=== PATIENT | male | born 1980 | race American Indian/Alaskan Native ===

== ENCOUNTER 2016-08-24 21:08 | Emergency (ER) | payer MEDICARE ==
[2016-08-24] MEDS ORDERED: ZOFRAN IV ONE (23:24)
[2016-08-24] MEDS ORDERED: NACL 0.9% 1000 ML 1,000 ML IV ONE (23:24)
[2016-08-24] MEDS ORDERED: RELISTOR SUB-Q ONE (23:32)
--- NOTE | 2016-08-24 23:36 | Emergency Department Report ---
ED Abdominal Pain HPI - General Chief Complaint: Abdominal Pain Stated Complaint: ABDOMINAL PAIN Time Seen by Provider: 08/24/16 23:13 Source: EMS Mode of arrival: Stretcher Limitations: No Limitations - History of Present Illness Initial Comments: Patient is alert 6-year-old male with history of bowel obstructions with prior surgeries for bowel obstructions, diabetes, hypertension and chronic back pain for which the patient takes hydrocodone 10 mg every day as well as [facility] agitation, anger and suicidal ideation of diffuse abdominal pain and constipation. Patient states that he does not have a bowel movement in 7 days. He's also been vomiting on and off for the last 14 days. Denies any fevers or chills. He is not able to keep any foods down because it causes nausea and vomits. - Related Data Previous Rx's Medication Instructions Recorded Last Taken Type Ondansetron [Zofran Odt] 4 mg PO Q4H #14 tab.rapdis 07/03/13 Unknown Rx Docusate Sodium [Colace] 100 mg PO BID PRN #20 capsule 08/25/16 Unknown Rx Polyethylene Glycol 3350 [Miralax 17 gm PO QDAY #10 packet 08/25/16 Unknown Rx 3350] Allergies Allergy/AdvReac Type Severity Reaction Status Date / Time No Known Allergies Allergy Verified 08/24/16 21:15 ED Review of Systems ROS: Stated complaint: ABDOMINAL PAIN Other details as noted in HPI Comment: All other systems reviewed and negative Constitutional: denies: chills, fever Respiratory: denies: cough Cardiovascular: denies: chest pain Gastrointestinal: abdominal pain. denies: vomiting Skin: denies: rash Psychiatric: denies: anxiety ED Past Medical Hx - Past Medical History Previous Medical History?: Yes Hx Hypertension: Yes Hx Diabetes: Yes Hx Psychiatric Treatment: Yes (Bipolar) Additional medical history: bowel obstruction - Surgical History Past Surgical History?: Yes Additional Surgical History: colectomy 2012 - Social History Smoking Status: Current Every Day Smoker Substance Use Type: Alcohol, Marijuana - Medications Home Medications: Home Medications Medication Instructions Recorded Confirmed Last Taken Type Ondansetron [Zofran Odt] 4 mg PO Q4H #14 tab.rapdis 07/03/13 Unknown Rx Docusate Sodium [Colace] 100 mg PO BID PRN #20 capsule 08/25/16 Unknown Rx Polyethylene Glycol 3350 [Miralax 17 gm PO QDAY #10 packet 08/25/16 Unknown Rx 3350] ED Physical Exam - General Limitations: No Limitations General appearance: alert, in no apparent distress - Eye Eye exam: Present: normal appearance - Respiratory Respiratory exam: Present: normal lung sounds bilaterally. Absent: respiratory distress - Cardiovascular Cardiovascular Exam: Present: regular rate, normal rhythm - GI/Abdominal GI/Abdominal exam: Present: soft, tenderness (mild epigastric tenderness, Han 's negative, no tenderness at McBurney's point). Absent: distended - Neurological Exam Neurological exam: Present: alert, oriented X3 - Psychiatric Psychiatric exam: Present: normal affect - Skin Skin exam: Present: intact ED Course Vital Signs 08/24/16 08/24/16 08/24/16 21:38 21:39 21:45 Temperature 98.8 F Pulse Rate 83 85 Respiratory 16 16 Rate Blood Pressure 142/96 O2 Sat by Pulse Oximetry 08/24/16 08/24/16 08/24/16 22:00 22:30 23:00 Temperature Pulse Rate 83 83 79 Respiratory 15 16 15 Rate Blood Pressure 132/95 133/89 136/96 O2 Sat by Pulse 98 100 Oximetry 08/24/16 08/25/16 08/25/16 23:30 00:00 00:01 Temperature Pulse Rate 81 79 74 Respiratory 15 15 20 Rate Blood Pressure 125/81 115/78 115/78 O2 Sat by Pulse 98 99 Oximetry 08/25/16 08/25/16 00:30 01:00 Temperature Pulse Rate 78 Respiratory 15 19 Rate Blood Pressure 121/89 140/104 O2 Sat by Pulse 100 Oximetry - Reevaluation(s) Reevaluation #1: 08/25/16 01:41 Attempting enema as patient has not had a bowel movement. Reevaluation #2: 08/25/16 01:46 Patient had a bowel movement after Fleet enema, feels better but states that he would like to have another enema. I explained to the patient the importance of taking the medication to move his bowels as opioids will cause significant constipation for him. He appears to understand. We'll do another round of Fleet enema and discharge the patient back to a psychiatric facility. ED Medical Decision Making - Lab Data Result diagrams: 08/24/16 23:47 08/24/16 23:47 - Medical Decision Making IV, labs, IVF, zofran, xr abd, methylnaltrexone xr shows no air-fluid levels labs unremarkable given the xray and lack of distention or vomiting while in ER my concern for sbo is low, more likely to be constipation secondary to daily narcotic use without stool softener. Critical care attestation.: If time is entered above; I have spent that time in minutes in the direct care of this critically ill patient, excluding procedure time. ED Disposition Clinical Impression: Constipation Qualifiers: Constipation type: drug induced constipation Qualified Code(s): K59.03 - Drug induced constipation Disposition: DC/TX PSY HOSP/PSY UNIT Is pt being admited?: No Does the pt Need Aspirin: No Condition: Stable Instructions: Constipation (ED) Additional Instructions: Please follow up with the primary care physician in the next 3-5 days. Return to the emergency room immediately if your symptoms worsen significantly or you develop any new symptoms. Please make sure to take the MiraLAX and Colace prescribed as this will provide you from feeling significantly constipated or developing a obstruction. Prescriptions: Docusate Sodium [Colace] 100 mg PO BID PRN #20 capsule PRN Reason: Constipation Polyethylene Glycol 3350 [Miralax 3350] 17 gm PO QDAY #10 packet Referrals: PRIMARY CARE, [Primary Care Provider] - 3-5 Days Time of Disposition: 01:52
[2016-08-24 23:59] LABS: Basophils % (Auto) 0.7 % (0.0-1.8); Eosinophils % (Auto) 1.7 % (0.0-4.3); Hematocrit 46.2 % (35.5-45.6); Hemoglobin 15.1 gm/dl (11.8-15.2); Mean Corpuscular HGB Conc 33 % (32-34); Mean Corpuscular Volume 74 fl (84-94); Platelet Count 288 K/mm3 (140-440); Red Blood Count 6.28 M/mm3 (3.65-5.03); Red Cell Distribution Width 14.6 % (13.2-15.2); White Blood Count 9.2 K/mm3 (4.5-11.0)
[2016-08-25 00:04] LABS: Mean Corpuscular Hemoglobin 24 pg (28-32)
[2016-08-25 00:29] LABS: Alanine Aminotransferase 6 units/L (7-56); Albumin 3.8 g/dL (3.9-5); Albumin/Globulin Ratio 1.4 %; Alkaline Phosphatase 56 units/L (35-129); BUN/Creatinine Ratio 6.25; Blood Urea Nitrogen 5 mg/dL (9-20); Calcium 9.1 mg/dL (8.4-10.2); Carbon Dioxide 25 mmol/L (22-30); Chloride 92.8 mmol/L (98-107); Glucose 118 mg/dL (75-100); Lipase 20 units/L (13-60); Potassium 3.6 mmol/L (3.6-5.0); Sodium 132 mmol/L (137-145); Total Protein 6.6 g/dL (6.3-8.2)
[2016-08-25 00:30] LABS: Anion Gap 18 mmol/L; Bilirubin,Direct < 0.2 mg/dL (0-0.2); Bilirubin,Indirect 0.1 mg/dL
[2016-08-25 00:39] LABS: Bilirubin,Urine NEG (Negative); Blood,Urine NEG (Negative); Ketones,Urine NEG (Negative); Leukocyte Esterase,Urine NEG (Negative); Nitrite,Urine NEG (Negative); Protein,Urine <15 mg/dL mg/dL (Negative); Urobilinogen,Urine < 2.0 mg/dL (<2.0); WBC,Urine < 1.0 /HPF (0.0-6.0)
[2016-08-25] MEDS ORDERED: FLEET PR ONE ×2 (01:08→01:46)
[2016-08-25 03:16] VITALS: BP 140/104
--- NOTE | 2016-08-25 10:12 | XRay Report ---
ABDOMEN TWO VIEWS: 08/24/16 23:25:00 CLINICAL: Abdominal pain. FINDINGS: Supine upright views demonstrate a normal bowel gas pattern. No distended bowel and no air-fluid levels. No mass or suspicious calcifications. Small pelvic calcifications. A distal ureteral calculus cannot be excluded. The bones and soft tissues are normal. IMPRESSION: Negative abdomen except for pelvic calculi. Ureteral calculi cannot be excluded.
== END 2016-08-25 03:10 ==
LOC: ED 21:08
DX: K59.03 Drug induced constipation (principal); I10 Essential (primary) hypertension; E11.9 Type 2 diabetes mellitus without complications; F31.9 Bipolar disorder, unspecified; F17.200 Nicotine dependence, unspecified, uncomplicated; F12.10 Cannabis abuse, uncomplicated
CPT/HCPCS: 36415; 74020; 80048; 80074; 81001; 83690; 85025; 96361; 96372; 96374; 99285; J2212; J2405; J7030

== ENCOUNTER 2017-09-23 12:58 | Emergency (ER) | payer MEDICARE ==
[2017-09-23 14:26] LABS: Basophils # (Auto) 0.1 K/mm3 (0.0-0.1); Basophils % (Auto) 0.9 % (0.0-1.8); Eosinophils # (Auto) 0.1 K/mm3 (0.0-0.4); Eosinophils % (Auto) 1.1 % (0.0-4.3); Hematocrit 50.4 % (35.5-45.6); Hemoglobin 15.9 gm/dl (11.8-15.2); Lymphocytes # (Auto) 2.6 K/mm3 (1.2-5.4); Lymphocytes % (Auto) 27.8 % (13.4-35.0); Mean Corpuscular HGB Conc 32 % (32-34); Mean Corpuscular Volume 77 fl (84-94); Monocytes # (Auto) 0.8 K/mm3 (0.0-0.8); Monocytes % (Auto) 8.9 % (0.0-7.3); Platelet Count 351 K/mm3 (140-440); Red Blood Count 6.57 M/mm3 (3.65-5.03); Red Cell Distribution Width 14.6 % (13.2-15.2)
[2017-09-23 14:28] LABS: Mean Corpuscular Hemoglobin 24 pg (28-32)
[2017-09-23 14:40] LABS: Alanine Aminotransferase 8 units/L (7-56); Albumin 3.7 g/dL (3.9-5); BUN/Creatinine Ratio 9; Blood Urea Nitrogen 8 mg/dL (9-20); Calcium 9.2 mg/dL (8.4-10.2); Hemolysis Index 21
[2017-09-23 15:12] LABS: Bilirubin,Urine NEG (Negative); Blood,Urine NEG (Negative); Color,Urine Yellow (Yellow); Hyaline Casts,Urine 1 /LPF; Protein,Urine <15 mg/dL mg/dL (Negative); Urobilinogen,Urine < 2.0 mg/dL (<2.0)
[2017-09-23 15:20] LABS: Benzodiazepines Screen,Urine PRESUMPTIVE NEGATIVE; Cannabinoid Screen,Urine PRESUMPTIVE NEGATIVE; Cocaine Screen,Urine PRESUMPTIVE NEGATIVE; Methadone Screen,Urine PRESUMPTIVE NEGATIVE; Opiate Screen,Urine PRESUMPTIVE NEGATIVE
[2017-09-23 15:32] LABS: Amphetamine Screen,Urine PRESUMPTIVE POSITIVE
--- NOTE | 2017-09-23 15:56 | Emergency Department Report ---
ED General Adult HPI - General Chief complaint: Abdominal Pain Stated complaint: ABDOMINAL PAIN Time Seen by Provider: 09/23/17 15:41 Source: patient, RN notes reviewed Mode of arrival: Wheelchair Limitations: No Limitations - History of Present Illness Initial comments: This is a 37-year-old male who is unknown to this provider, who reports a past medical history of constipation, bipolar, bowel obstruction, with a partial colectomy in 2012. He presents to the ER with a complaint of not defecating for 4 days, abdominal cramping, and nausea and vomiting. This is been going on for a few days. It is constant. It does not radiate anywhere. it does not have exacerbating or relieving factors. She denies headache, neck pain, chest pain, testicular pain, urinary symptoms. He is also requesting Gatorade to drink. -: Gradual Location: abdomen Radiation: non-radiation Quality: aching Consistency: intermittent Improves with: none Worsens with: none Associated Symptoms: nausea/vomiting, other (constipation. Denies testicular symptoms). denies: confusion, chest pain, cough, diaphoresis, fever/chills, headaches, loss of appetite, malaise, rash, seizure, shortness of breath, syncope - Related Data Previous Rx's Medication Instructions Recorded Last Taken Type Ondansetron [Zofran Odt] 4 mg PO Q4H #14 tab.rapdis 07/03/13 Unknown Rx Docusate Sodium [Colace] 100 mg PO BID PRN #20 capsule 08/25/16 Unknown Rx Polyethylene Glycol 3350 [Miralax 17 gm PO QDAY #10 packet 08/25/16 Unknown Rx 3350] Acetaminophen [Tylenol Arthritis] 650 mg PO Q6HR PRN #30 tablet.er 09/23/17 Unknown Rx Ondansetron [Zofran Odt] 4 mg PO Q8HR PRN #20 tab.rapdis 09/23/17 Unknown Rx Allergies Allergy/AdvReac Type Severity Reaction Status Date / Time No Known Allergies Allergy Verified 08/24/16 21:15 ED Review of Systems ROS: Stated complaint: ABDOMINAL PAIN Other details as noted in HPI Comment: All other systems reviewed and negative ED Past Medical Hx - Past Medical History Hx Hypertension: Yes Hx Diabetes: Yes Hx Psychiatric Treatment: Yes (Bipolar) Additional medical history: bowel obstruction - Surgical History Additional Surgical History: colectomy 2012 - Social History Smoking Status: Unknown if ever smoked Substance Use Type: Alcohol - Medications Home Medications: Home Medications Medication Instructions Recorded Confirmed Last Taken Type Ondansetron [Zofran Odt] 4 mg PO Q4H #14 tab.rapdis 07/03/13 Unknown Rx Docusate Sodium [Colace] 100 mg PO BID PRN #20 capsule 08/25/16 Unknown Rx Polyethylene Glycol 3350 [Miralax 17 gm PO QDAY #10 packet 08/25/16 Unknown Rx 3350] Acetaminophen [Tylenol Arthritis] 650 mg PO Q6HR PRN #30 tablet.er 09/23/17 Unknown Rx Ondansetron [Zofran Odt] 4 mg PO Q8HR PRN #20 tab.rapdis 09/23/17 Unknown Rx ED Physical Exam - General Limitations: No Limitations General appearance: alert, in no apparent distress - Head Head exam: Present: atraumatic, normocephalic - Eye Eye exam: Present: normal appearance, EOMI. Absent: nystagmus - ENT ENT exam: Present: normal exam, normal orophraynx, mucous membranes moist, normal external ear exam - Neck Neck exam: Present: normal inspection, full ROM - Respiratory Respiratory exam: Present: normal lung sounds bilaterally. Absent: respiratory distress - Cardiovascular Cardiovascular Exam: Present: regular rate, normal rhythm, normal heart sounds. Absent: systolic murmur, diastolic murmur, rubs, gallop - GI/Abdominal GI/Abdominal exam: Present: soft, normal bowel sounds. Absent: distended, tenderness, guarding, rebound, rigid, pulsatile mass - Rectal Rectal exam: Present: deferred - Extremities Exam Extremities exam: Present: normal inspection, full ROM, normal capillary refill. Absent: pedal edema, joint swelling, calf tenderness - Back Exam Back exam: Present: normal inspection, full ROM. Absent: tenderness, CVA tenderness (R), paraspinal tenderness, vertebral tenderness - Neurological Exam Neurological exam: Present: alert, oriented X3, CN II-XII intact, other ( Extraocular movements intact. Tongue midline. No facial droop. Facial sensation intact to light touch in the V1, V2, V3 distribution bilaterally. 5 and 5 strength in 4 extremities.. Sensation is intact to light touch in 4 extremities.). Absent: motor sensory deficit - Psychiatric Psychiatric exam: Present: normal affect, normal mood. Absent: homicidal ideation, suicidal ideation - Skin Skin exam: Present: warm, dry, intact, normal color. Absent: rash ED Course Vital Signs 09/23/17 13:50 Temperature 98 F Pulse Rate 91 H Respiratory 16 Rate Blood Pressure 108/68 O2 Sat by Pulse 95 Oximetry - Reevaluation(s) Reevaluation #1: 09/23/17 16:30 Differential diagnosis, including but not limited to: Constipation, obstruction Assessment and plan: 37-year-old male with probable constipation. However given his history of obstruction and colonic resection, we will obtain a CT scan to exclude obstruction. His abdomen is soft and benign, with normal bowel sounds, laboratory studies appear to be within normal limits, and he is drinking fluids without difficulty. Reevaluation #2: 09/23/17 16:32 The patient is currently on a 1013 from a psychiatric facility but he is not actively psychotic, nor is he homicidal or suicidal at this time. Reevaluation #3: 09/23/17 18:29 Abdomen is soft on repeat examination. The patient is tolerating oral feeds. CT scan of the abdomen and pelvis is negative for surgical disease. Patient can be managed expectantly. No evidence of obstruction. ED Medical Decision Making - Lab Data Result diagrams: 09/23/17 14:03 09/23/17 14:03 Vital Signs 09/23/17 13:50 Temperature 98 F Pulse Rate 91 H Respiratory 16 Rate Blood Pressure 108/68 O2 Sat by Pulse 95 Oximetry Lab Results 09/23/17 09/23/17 09/23/17 Range/Units 14:03 14:03 14:03 WBC 9.5 (4.5-11.0) K/mm3 RBC 6.57 H (3.65-5.03) M/mm3 Hgb 15.9 H (11.8-15.2) gm/dl Hct 50.4 H (35.5-45.6) % MCV 77 L (84-94) fl MCH 24 L (28-32) pg MCHC 32 (32-34) % RDW 14.6 (13.2-15.2) % Plt Count 351 (140-440) K/mm3 Lymph % (Auto) 27.8 (13.4-35.0) % [place] % (Auto) 8.9 H (0.0-7.3) % Eos % (Auto) 1.1 (0.0-4.3) % Baso % (Auto) 0.9 (0.0-1.8) % Lymph # 2.6 (1.2-5.4) K/mm3 [place] # 0.8 (0.0-0.8) K/mm3 Eos # 0.1 (0.0-0.4) K/mm3 Baso # 0.1 (0.0-0.1) K/mm3 Seg Neutrophils % 61.3 (40.0-70.0) % Seg Neutrophils # 5.9 (1.8-7.7) K/mm3 Sodium 134 L (137-145) mmol/L Potassium 3.7 (3.6-5.0) mmol/L Chloride 93.7 L (98-107) mmol/L Carbon Dioxide 27 (22-30) mmol/L Anion Gap 17 mmol/L BUN 8 L (9-20) mg/dL Creatinine 0.9 (0.8-1.5) mg/dL Estimated GFR > 60 ml/min BUN/Creatinine Ratio 9 % Glucose 139 H (75-100) mg/dL Calcium 9.2 (8.4-10.2) mg/dL Total Bilirubin 0.50 (0.1-1.2) mg/dL AST 24 (5-40) units/L ALT 8 (7-56) units/L Alkaline Phosphatase 73 (35-129) units/L Total Protein 7.0 (6.3-8.2) g/dL Albumin 3.7 L (3.9-5) g/dL Albumin/Globulin Ratio 1.1 % Urine Color (Yellow) Urine Turbidity (Clear) Urine pH (5.0-7.0) Ur Specific [place] (1.003-1.030) Urine Protein (Negative) mg/dL Urine Glucose (UA) (Negative) mg/dL Urine Ketones (Negative) mg/dL Urine Blood (Negative) Urine Nitrite (Negative) Urine Bilirubin (Negative) Urine Urobilinogen (<2.0) mg/dL Ur Leukocyte Esterase (Negative) Urine WBC (Auto) (0.0-6.0) /HPF Urine RBC (Auto) (0.0-6.0) /HPF Hyaline Casts /LPF Salicylates < 0.3 L (2.8-20.0) mg/dL Urine Opiates Screen Urine Methadone Screen Acetaminophen (10.0-30.0) ug/mL Ur Barbiturates Screen Ur Phencyclidine Scrn Ur Amphetamines Screen U Benzodiazepines Scrn Urine Cocaine Screen U Marijuana (THC) Screen Drugs of Abuse Note Plasma/Serum Alcohol (0-0.07) % 09/23/17 09/23/17 09/23/17 Range/Units 14:03 14:03 Unknown WBC (4.5-11.0) K/mm3 RBC (3.65-5.03) M/mm3 Hgb (11.8-15.2) gm/dl Hct (35.5-45.6) % MCV (84-94) fl MCH (28-32) pg MCHC (32-34) % RDW (13.2-15.2) % Plt Count (140-440) K/mm3 Lymph % (Auto) (13.4-35.0) % [place] % (Auto) (0.0-7.3) % Eos % (Auto) (0.0-4.3) % Baso % (Auto) (0.0-1.8) % Lymph # (1.2-5.4) K/mm3 [place] # (0.0-0.8) K/mm3 Eos # (0.0-0.4) K/mm3 Baso # (0.0-0.1) K/mm3 Seg Neutrophils % (40.0-70.0) % Seg Neutrophils # (1.8-7.7) K/mm3 Sodium (137-145) mmol/L Potassium (3.6-5.0) mmol/L Chloride (98-107) mmol/L Carbon Dioxide (22-30) mmol/L Anion Gap mmol/L BUN (9-20) mg/dL Creatinine (0.8-1.5) mg/dL Estimated GFR ml/min BUN/Creatinine Ratio % Glucose (75-100) mg/dL Calcium (8.4-10.2) mg/dL Total Bilirubin (0.1-1.2) mg/dL AST (5-40) units/L ALT (7-56) units/L Alkaline Phosphatase (35-129) units/L Total Protein (6.3-8.2) g/dL Albumin (3.9-5) g/dL Albumin/Globulin Ratio % Urine Color Yellow (Yellow) Urine Turbidity Clear (Clear) Urine pH 6.0 (5.0-7.0) Ur Specific [place] 1.011 (1.003-1.030) Urine Protein <15 mg/dl (Negative) mg/dL Urine Glucose (UA) Neg (Negative) mg/dL Urine Ketones Neg (Negative) mg/dL Urine Blood Neg (Negative) Urine Nitrite Neg (Negative) Urine Bilirubin Neg (Negative) Urine Urobilinogen < 2.0 (<2.0) mg/dL Ur Leukocyte Esterase Tr (Negative) Urine WBC (Auto) 6.0 (0.0-6.0) /HPF Urine RBC (Auto) 3.0 (0.0-6.0) /HPF Hyaline Casts 1 /LPF Salicylates (2.8-20.0) mg/dL Urine Opiates Screen Urine Methadone Screen Acetaminophen < 5.0 L (10.0-30.0) ug/mL Ur Barbiturates Screen Ur Phencyclidine Scrn Ur Amphetamines Screen U Benzodiazepines Scrn Urine Cocaine Screen U Marijuana (THC) Screen Drugs of Abuse Note Plasma/Serum Alcohol < 0.01 (0-0.07) % 09/23/17 Range/Units Unknown WBC (4.5-11.0) K/mm3 RBC (3.65-5.03) M/mm3 Hgb (11.8-15.2) gm/dl Hct (35.5-45.6) % MCV (84-94) fl MCH (28-32) pg MCHC (32-34) % RDW (13.2-15.2) % Plt Count (140-440) K/mm3 Lymph % (Auto) (13.4-35.0) % [place] % (Auto) (0.0-7.3) % Eos % (Auto) (0.0-4.3) % Baso % (Auto) (0.0-1.8) % Lymph # (1.2-5.4) K/mm3 [place] # (0.0-0.8) K/mm3 Eos # (0.0-0.4) K/mm3 Baso # (0.0-0.1) K/mm3 Seg Neutrophils % (40.0-70.0) % Seg Neutrophils # (1.8-7.7) K/mm3 Sodium (137-145) mmol/L Potassium (3.6-5.0) mmol/L Chloride (98-107) mmol/L Carbon Dioxide (22-30) mmol/L Anion Gap mmol/L BUN (9-20) mg/dL Creatinine (0.8-1.5) mg/dL Estimated GFR ml/min BUN/Creatinine Ratio % Glucose (75-100) mg/dL Calcium (8.4-10.2) mg/dL Total Bilirubin (0.1-1.2) mg/dL AST (5-40) units/L ALT (7-56) units/L Alkaline Phosphatase (35-129) units/L Total Protein (6.3-8.2) g/dL Albumin (3.9-5) g/dL Albumin/Globulin Ratio % Urine Color (Yellow) Urine Turbidity (Clear) Urine pH (5.0-7.0) Ur Specific [place] (1.003-1.030) Urine Protein (Negative) mg/dL Urine Glucose (UA) (Negative) mg/dL Urine Ketones (Negative) mg/dL Urine Blood (Negative) Urine Nitrite (Negative) Urine Bilirubin (Negative) Urine Urobilinogen (<2.0) mg/dL Ur Leukocyte Esterase (Negative) Urine WBC (Auto) (0.0-6.0) /HPF Urine RBC (Auto) (0.0-6.0) /HPF Hyaline Casts /LPF Salicylates (2.8-20.0) mg/dL Urine Opiates Screen Presumptive negative Urine Methadone Screen Presumptive negative Acetaminophen (10.0-30.0) ug/mL Ur Barbiturates Screen Presumptive negative Ur Phencyclidine Scrn Presumptive negative Ur Amphetamines Screen Presumptive positive U Benzodiazepines Scrn Presumptive negative Urine Cocaine Screen Presumptive negative U Marijuana (THC) Screen Presumptive negative Drugs of Abuse Note Disclamer Plasma/Serum Alcohol (0-0.07) % - Radiology Data Radiology results: report reviewed, image reviewed Critical care attestation.: If time is entered above; I have spent that time in minutes in the direct care of this critically ill patient, excluding procedure time. ED Disposition Clinical Impression: Abdominal pain Disposition: DC/TX-65 PSY HOSP/PSY UNIT Is pt being admited?: No Does the pt Need Aspirin: No Condition: Stable Instructions: Abdominal Pain (ED) Additional Instructions: Continue current outpatient medications. Take the pain medication, nausea medication as needed/directed. Follow up with a primary care doctor within the next month. Return to the ER right away with new pain, worsening pain, migration of pain, fevers, chills, lethargy, irritability, projectile vomiting, change in mental status, confusion, inability to tolerate liquid feeds. Referrals: PRIMARY CAREMD [Primary Care Provider] - 3-5 Days GRIFFIN ALLEN MD [Staff Physician] - 3-5 Days
--- NOTE | 2017-09-23 17:14 | XRay Report ---
FINAL REPORT EXAM: XR ABDOMEN 2V HISTORY: constipation TECHNIQUE: Supine and upright views of abdomen. PRIORS: None. FINDINGS: Nonspecific bowel gas pattern, including gas and stool from stomach to rectum, with some small air-fluid levels projected over right lower quadrant. No apparent pneumoperitoneum. No abnormal calcifications. Osseous structures grossly unremarkable. IMPRESSION: 1. Nonspecific bowel gas pattern, which may represent adynamic ileus. Followup may be warranted.
--- NOTE | 2017-09-23 18:22 | Cat Scan Report ---
FINAL REPORT EXAM: CT ABDOMEN PELVIS WO CON HISTORY: abd pain n/v TECHNIQUE: Spiral CT scanning of the abdomen and pelvis. No oral or IV contrast administered. Multiplanar reformations. PRIORS: None. FINDINGS: Abdomen: Examination limited due to lack of contrast administration. Visualized lung bases grossly unremarkable. No radiopaque gallstones. Liver grossly unremarkable. Spleen grossly unremarkable. Pancreas grossly unremarkable. Kidneys grossly unremarkable. Adrenal glands grossly unremarkable. Pelvis: Diverticular change in the descending colon. Remainder of visualized bowel grossly unremarkable. Appendix within normal limits. No significant free peritoneal fluid or loculated fluid collection. Abdominal aorta non-aneurysmal. Fat-containing, bilateral inguinal hernias, right greater than left. IMPRESSION: 1. Descending colon diverticulosis. 2. Otherwise, unremarkable.
[2017-09-23 19:21] VITALS: BP 110/77
== END 2017-09-23 21:07 ==
LOC: ED 12:58
DX: R10.9 Unspecified abdominal pain (principal); I10 Essential (primary) hypertension; E11.9 Type 2 diabetes mellitus without complications; F31.9 Bipolar disorder, unspecified; Z79.899 Other long term (current) drug therapy
CPT/HCPCS: 36415; 74019; 74176; 80048; 80053; 80307; 81001; 85025; 99284; G0480; 80320

== ENCOUNTER 2020-08-10 00:18 | Observation (INO) | payer MEDICARE ==
[2020-08-10] MEDS ORDERED: SODIUM CHLORIDE 0.9% 1000 ML 1,000 ML IV ONE (00:50)
--- NOTE | 2020-08-10 00:52 | Emergency Department Report ---
ED N/V/D HPI - General Chief complaint: Nausea/Vomiting/Diarrhea Stated complaint: NAUSEA/VOMITING PUI?: No Time Seen by Provider: 08/10/20 00:27 Source: patient, EMS - History of Present Illness Initial comments: Patient is a 40-year-old male who presents with EMS for nausea and vomiting x2 days. Patient states his nausea vomiting worsen. Patient states he started having coffee-ground emesis approximately 6 hours ago. Patient states his symptoms are worsening. Patient brought from a local psychiatric facility and the patient has a sitter with him because the patient is on suicide precautions. Patient is currently a 1013 at [facility] for suicidal ideations. Patient denies recent travel. Patient denies recent international travel. Patient denies exposure to the novel coronavirus. Patient denies sick contacts. Patient denies fever and chills. Patient denies cough. Patient denies diarrhea. Patient denies coming in contact with anybody with symptoms of the novel coronavirus. MD complaint: nausea, vomiting -: Sudden Description of Vomiting: coffee grounds Associated Abdominal Pain: Yes Location: epigastric Radiation: none Severity: severe Pain Scale: 10 Quality: stabbing Consistency: constant Improves with: rest Worsens with: movement Associated Symptoms: loss of appetite, nausea/vomiting. denies: myalgias, chest pain, cough, diaphoresis, fever/chills, headaches, malaise, rash, dysuria, shortness of breath, syncope, weakness - Related Data Previous Rx's Medication Instructions Recorded Last Taken Type Ondansetron [Zofran Odt] 4 mg PO Q4H #14 tab.rapdis 07/03/13 Unknown Rx Docusate Sodium [Colace] 100 mg PO BID PRN #20 capsule 08/25/16 Unknown Rx polyethylene glycoL 3350 [Miralax 17 gm PO QDAY #10 packet 08/25/16 Unknown Rx 3350] Acetaminophen [Tylenol Arthritis] 650 mg PO Q6HR PRN #30 tablet.er 09/23/17 Unknown Rx Ondansetron [Zofran Odt] 4 mg PO Q8HR PRN #20 tab.rapdis 09/23/17 Unknown Rx Allergies Allergy/AdvReac Type Severity Reaction Status Date / Time No Known Allergies Allergy Verified 08/24/16 21:15 ED Review of Systems ROS: Stated complaint: NAUSEA/VOMITING Other details as noted in HPI Constitutional: denies: chills, fever Eyes: denies: eye pain, eye discharge, vision change ENT: denies: ear pain, throat pain Respiratory: denies: cough, shortness of breath, wheezing Cardiovascular: denies: chest pain, palpitations Endocrine: no symptoms reported Gastrointestinal: abdominal pain, nausea, vomiting, hematemesis. denies: diarrhea Genitourinary: denies: urgency, dysuria Musculoskeletal: denies: back pain, joint swelling, arthralgia Skin: denies: rash, lesions Neurological: denies: headache, weakness, paresthesias Psychiatric: denies: anxiety, depression Hematological/Lymphatic: denies: easy bleeding, easy bruising ED Past Medical Hx - Past Medical History Previous Medical History?: Yes Hx Hypertension: Yes Hx Diabetes: Yes Hx Psychiatric Treatment: Yes (Bipolar) Additional medical history: bowel obstruction - Surgical History Past Surgical History?: Yes Additional Surgical History: colectomy 2012 - Family History Family history: no significant - Social History Smoking Status: Unknown if ever smoked Substance Use Type: Alcohol - Medications Home Medications: Home Medications Medication Instructions Recorded Confirmed Last Taken Type Ondansetron [Zofran Odt] 4 mg PO Q4H #14 tab.rapdis 07/03/13 Unknown Rx Docusate Sodium [Colace] 100 mg PO BID PRN #20 capsule 08/25/16 Unknown Rx polyethylene glycoL 3350 [Miralax 17 gm PO QDAY #10 packet 08/25/16 Unknown Rx 3350] Acetaminophen [Tylenol Arthritis] 650 mg PO Q6HR PRN #30 tablet.er 09/23/17 Unknown Rx Ondansetron [Zofran Odt] 4 mg PO Q8HR PRN #20 tab.rapdis 09/23/17 Unknown Rx ED Physical Exam - General General appearance: alert, in no apparent distress - Head Head exam: Present: atraumatic, normocephalic - Eye Eye exam: Present: normal appearance - ENT ENT exam: Present: mucous membranes moist - Neck Neck exam: Present: normal inspection - Respiratory Respiratory exam: Present: normal lung sounds bilaterally. Absent: respiratory distress - Cardiovascular Cardiovascular Exam: Present: regular rate, normal rhythm. Absent: systolic murmur, diastolic murmur, rubs, gallop - GI/Abdominal GI/Abdominal exam: Present: soft, tenderness, normal bowel sounds - Rectal Rectal exam: Present: deferred - Extremities Exam Extremities exam: Present: normal inspection - Back Exam Back exam: Present: normal inspection - Neurological Exam Neurological exam: Present: alert, oriented X3 - Psychiatric Psychiatric exam: Present: normal affect, normal mood - Skin Skin exam: Present: warm, dry, intact, normal color. Absent: rash ED Course Vital Signs 08/10/20 08/10/20 08/10/20 01:10 01:15 01:31 Pulse Rate 93 H 92 H 102 H Respiratory 18 19 Rate Blood Pressure 121/78 O2 Sat by Pulse 98 97 Oximetry 08/10/20 08/10/20 08/10/20 01:45 02:01 02:15 Pulse Rate 96 H 92 H 100 H Respiratory 20 22 16 Rate Blood Pressure 121/78 139/102 139/102 O2 Sat by Pulse 97 99 99 Oximetry 08/10/20 08/10/20 08/10/20 02:31 02:45 04:15 Pulse Rate 84 126 H Respiratory 21 23 Rate Blood Pressure 139/102 139/102 142/86 O2 Sat by Pulse 99 Oximetry 08/10/20 08/10/20 08/10/20 04:31 04:45 05:15 Pulse Rate Respiratory Rate Blood Pressure 142/86 139/102 132/83 O2 Sat by Pulse 98 98 95 Oximetry - Reevaluation(s) Reevaluation #1: Patient is vomiting again. Patient was given another 4 mg of Zofran. 08/10/20 02:42 Reevaluation #2: I discussed all results with patient. I discussed plan of care with patient. Patient agrees with plan of care and admission. Patient to be admitted to the hospitalist service. 08/10/20 04:23 - Consultations Consultation #1: Hospitalist consulted for admission. Hospitalist to admit patient. 08/10/20 04:23 Consultation #2: I discussed the case with GI, Dr. De La Torre. Dr. De La Torre recommends admission and GI will follow the patient. 08/10/20 04:27 ED Medical Decision Making - Lab Data Result diagrams: 08/10/20 00:57 08/10/20 00:57 - Radiology Data Radiology results: report reviewed CT ABDOMEN AND PELVIS WITH CONTRAST INDICATION / CLINICAL INFORMATION: Pt complains of nausea and vomiting. Coffee ground emesis. TECHNIQUE: Axial CT images were obtained through the abdomen and pelvis after 100 mL Omnipaque [address] scans at this location are performed using CT dose reduction for ALARA by means of automated exposure control. COMPARISON: CT abdomen pelvis 09/23/2017 FINDINGS: LOWER CHEST: No significant abnormality. LIVER: No significant abnormality. BILIARY SYSTEM: No significant abnormality. PANCREAS: No significant abnormality. SPLEEN: No significant abnormality. ADRENALS: No significant abnormality. KIDNEYS and URETERS: No significant abnormality. STOMACH / BOWEL: Small hiatal hernia. Colonic diverticulosis without CT evidence for acute diverticulitis. The appendix is normal. PERITONEUM: No free fluid. No free air. No fluid collection. LYMPH NODES: No significant adenopathy. VASCULAR STRUCTURES: No significant abnormality. URINARY BLADDER: No significant abnormality. REPRODUCTIVE ORGANS: No significant abnormality. ADDITIONAL FINDINGS: None. SKELETAL SYSTEM: No significant abnormality. IMPRESSION: 1. No acute process identified within the abdomen or pelvis to account for patient's symptoms. - Medical Decision Making Patient is a 40-year-old male that presents emergency room with complaints of nausea, vomiting, patient is complaining of epigastric pain. Patient seen vomiting coffee-ground emesis multiple times in the ER. Patient required multiple medications to alleviate his nausea. Patient given Zofran and then Reglan. Patient had a CAT scan done due to elevated WBC and vomiting. Patient's CAT scan negative for acute findings. Patient admitted to the hospitalist service. Prior to admission I consulted GI and GI recommendations were received. Critical care time documented due to the multiple reassessments, prolonged time at the bedside, interpretation of diagnostics and labs. - Differential Diagnosis Coffee-ground emesis, nausea, vomiting, Xochitl-Johnson tear, abdominal pain Critical Care Time: Yes Critical care time in (mins) excluding proc time.: 35 Critical care attestation.: If time is entered above; I have spent that time in minutes in the direct care of this critically ill patient, excluding procedure time. Critical Care Time: 35 minutes ED Disposition Clinical Impression: Coffee ground emesis Abdominal pain Qualifiers: Abdominal location: epigastric Qualified Code(s): R10.13 - Epigastric pain Nausea & vomiting Qualifiers: Vomiting type: unspecified Vomiting Intractability: intractable Qualified Code(s): R11.2 - Nausea with vomiting, unspecified Disposition: DC-09 OP ADMIT IP TO THIS HOSP Is pt being admited?: Yes Does the pt Need Aspirin: No Condition: Critical Time of Disposition: 04:26
[2020-08-10] MEDS ORDERED: PANTOPRAZOLE 80 MG in SODIUM CHLORIDE 0.9% 100 ML IV SCH (01:00)
[2020-08-10] MEDS: ONDANSETRON 4 MG/2 ML INJ IV ONE ×2 (01:16→01:17)
[2020-08-10 01:56] LABS: Alanine Aminotransferase 9 units/L (7-56); Albumin 4.2 g/dL (3.9-5); BUN/Creatinine Ratio 9; Bilirubin,Direct < 0.2 mg/dL (0-0.2); Blood Urea Nitrogen 8 mg/dL (9-20); Calcium 8.8 mg/dL (8.4-10.2); Hemolysis Index 13
[2020-08-10 02:11] LABS: Basophils % (Auto) 0.3 % (0.0-1.8); Eosinophils # (Auto) 0.1 K/mm3 (0.0-0.4); Eosinophils % (Auto) 0.3 % (0.0-4.3); Lymphocytes # (Auto) 2.9 K/mm3 (1.2-5.4); Lymphocytes % (Auto) 15.6 % (13.4-35.0); Mean Corpuscular HGB Conc 31 % (32-34); Mean Corpuscular Volume 78 fl (84-94); Monocytes # (Auto) 1.1 K/mm3 (0.0-0.8); Monocytes % (Auto) 6.2 % (0.0-7.3); Platelet Count 293 K/mm3 (140-440); Red Blood Count 5.92 M/mm3 (3.65-5.03); Red Cell Distribution Width 15.5 % (13.2-15.2)
[2020-08-10 02:12] LABS: Hemoglobin 14.3 gm/dl (11.8-15.2)
[2020-08-10] MEDS ORDERED: ONDANSETRON 4 MG/2 ML INJ IV ONE (02:46)
--- NOTE | 2020-08-10 03:54 | Cat Scan Report ---
CT ABDOMEN AND PELVIS WITH CONTRAST INDICATION / CLINICAL INFORMATION: Pt complains of nausea and vomiting. Coffee ground emesis. TECHNIQUE: Axial CT images were obtained through the abdomen and pelvis after 100 mL Omnipaque [address] scans at this location are performed using CT dose reduction for ALARA by means of automated exposure control. COMPARISON: CT abdomen pelvis 09/23/2017 FINDINGS: LOWER CHEST: No significant abnormality. LIVER: No significant abnormality. BILIARY SYSTEM: No significant abnormality. PANCREAS: No significant abnormality. SPLEEN: No significant abnormality. ADRENALS: No significant abnormality. KIDNEYS and URETERS: No significant abnormality. STOMACH / BOWEL: Small hiatal hernia. Colonic diverticulosis without CT evidence for acute diverticul itis. The appendix is normal. PERITONEUM: No free fluid. No free air. No fluid collection. LYMPH NODES: No significant adenopathy. VASCULAR STRUCTURES: No significant abnormality. URINARY BLADDER: No significant abnormality. REPRODUCTIVE ORGANS: No significant abnormality. ADDITIONAL FINDINGS: None. SKELETAL SYSTEM: No significant abnormality. IMPRESSION: 1. No acute process identified within the abdomen or pelvis to account for patient's symptoms. Signer Name: Kyleigh Townsend MD Signed: 08/10/2020 3:49 AM Workstation Name: [id number]
[2020-08-10] MEDS ORDERED: ACETAMINOPHEN 325 MG TAB PO PRN (04:40)
[2020-08-10] MEDS ORDERED: METOCLOPRAMIDE 10 MG/2 ML INJ IV PRN (04:40)
[2020-08-10] MEDS ORDERED: MORPHINE 2 MG/1 ML INJ IV PRN ×2 (04:40→10:42)
[2020-08-10] MEDS ORDERED: METOCLOPRAMIDE 10 MG/2 ML INJ ONE (04:41)
--- NOTE | 2020-08-10 05:23 | History and Physical Report ---
History of Present Illness Date of examination: 08/10/20 Date of admission: 08/10/2020 Chief complaint: Nausea, coffee-ground emesis, History of present illness: 40-year-old -[place]wegian male who is currently on 1013 at [facility] for suicidal ideation with history of bipolar disorder, hypertension, diabetes, and bowel obstruction who complains of nausea and vomiting. Patient states he has been experiencing worsening nausea and vomiting x2-day and coffee-ground emesis x1 day. Additionally he complains of generalized abdominal cramping. Pain is constant and relieved with pain medication. Denies ingestion of foreign object, history of GERD/blood. Denies fever, diarrhea, constipation, abdominal distention, cough, recent injury/trauma, or recent sick contacts Past History Past Medical History: diabetes, hypertension, other (Bipolar, bowel obstruction) Past Surgical History: Other (colectomy (2012)) Social history: full code, other (Current resident at [facility] ([facility]), drinks alcohol on occasions). denies: alcohol abuse, prescription drug abuse, IV drug use Family history: no significant family history Medications and Allergies Allergies Allergy/AdvReac Type Severity Reaction Status Date / Time No Known Allergies Allergy Verified 08/24/16 21:15 Home Medications Medication Instructions Recorded Confirmed Last Taken Type Ondansetron [Zofran Odt] 4 mg PO Q4H #14 tab.rapdis 07/03/13 Unknown Rx Docusate Sodium [Colace] 100 mg PO BID PRN #20 capsule 08/25/16 Unknown Rx polyethylene glycoL 3350 [Miralax 17 gm PO QDAY #10 packet 08/25/16 Unknown Rx 3350] Acetaminophen [Tylenol Arthritis] 650 mg PO Q6HR PRN #30 tablet.er 09/23/17 Unknown Rx Ondansetron [Zofran Odt] 4 mg PO Q8HR PRN #20 tab.rapdis 09/23/17 Unknown Rx Active Meds: Active Medications Acetaminophen (Acetaminophen 325 Mg Tab) 650 mg PO Q4H PRN PRN Reason: Pain MILD(1-3)/Fever >100.5/CORDON Pantoprazole Sodium 80 mg/ (Sodium Chloride) 100 mls @ 10 mls/hr IV DIRECT LACEY Last Admin: 08/10/20 01:28 Dose: 8 mg/hr, 10 mls/hr Documented by: Sodium Chloride (Nacl 0.9% 1000 Ml) 1,000 mls @ 75 mls/hr IV DIRECT LACEY Metoclopramide HCl (Metoclopramide 10 Mg/2 Ml Inj) 10 mg IV Q6H PRN PRN Reason: Nausea And Vomiting Morphine Sulfate (Morphine 2 Mg/1 Ml Inj) 2 mg IV Q4H PRN PRN Reason: Pain, Moderate (4-6) Ondansetron HCl (Ondansetron 4 Mg/2 Ml Inj) 4 mg IV Q8H PRN PRN Reason: Nausea And Vomiting Sodium Chloride (Sodium Chloride 0.9% 10 Ml Flush Syringe) 10 ml IV BID LACEY Sodium Chloride (Sodium Chloride 0.9% 10 Ml Flush Syringe) 10 ml IV PRN PRN PRN Reason: LINE FLUSH Review of Systems All systems: negative (As noted in HPI) Exam - Physical Exam Narrative exam: Physical exam General appearance: Present: No acute distress, alert and oriented 3, adult male - EENT Eyes: Present: PERRL, EOM intact ENT: hearing intact, normal dentition - Neck Neck: Present: supple, normal ROM - Respiratory Respiratory effort: Non-labored Respiratory: Clear throughout - Cardiovascular Heart rate: 92 (bpm) Rhythm: Sinus Heart Sounds: Present: S1 & S2. Absent: rub, click - Extremities Extremities: no ischemia, pulses intact, - Peripheral Assessment Peripheral Pulses: within normal limits - Abdominal General gastrointestinal: soft, non-tender, normal bowel sounds - Integumentary Integumentary: Present: warm, dry - Musculoskeletal Musculoskeletal: Able to move all extremities -Neurological Neurological: CN II-XII intact - Psychiatric Psychiatric: cooperative - Constitutional Vitals: Temp Pulse Resp BP Pulse Ox 102 H 19 121/78 97 08/10/20 01:31 08/10/20 01:31 08/10/20 01:31 08/10/20 01:31 Results - Labs CBC & Chem 7: 08/10/20 00:57 08/10/20 00:57 Labs: Laboratory Last Values WBC 18.3 K/mm3 (4.5-11.0) H 08/10/20 00:57 RBC 5.92 M/mm3 (3.65-5.03) H 08/10/20 00:57 Hgb 14.3 gm/dl (11.8-15.2) 08/10/20 00:57 Hct 46.0 % (35.5-45.6) H 08/10/20 00:57 MCV 78 fl (84-94) L 08/10/20 00:57 MCH 24 pg (28-32) L 08/10/20 00:57 MCHC 31 % (32-34) L 08/10/20 00:57 RDW 15.5 % (13.2-15.2) H 08/10/20 00:57 Plt Count 293 K/mm3 (140-440) 08/10/20 00:57 Lymph % (Auto) 15.6 % (13.4-35.0) 08/10/20 00:57 Kaufman % (Auto) 6.2 % (0.0-7.3) 08/10/20 00:57 Eos % (Auto) 0.3 % (0.0-4.3) 08/10/20 00:57 Baso % (Auto) 0.3 % (0.0-1.8) 08/10/20 00:57 Lymph # (Auto) 2.9 K/mm3 (1.2-5.4) 08/10/20 00:57 Kaufman # (Auto) 1.1 K/mm3 (0.0-0.8) H 08/10/20 00:57 Eos # (Auto) 0.1 K/mm3 (0.0-0.4) 08/10/20 00:57 Baso # (Auto) 0.0 K/mm3 (0.0-0.1) 08/10/20 00:57 Seg Neutrophils % 77.6 % (40.0-70.0) H 08/10/20 00:57 Seg Neutrophils # 14.2 K/mm3 (1.8-7.7) H 08/10/20 00:57 Sodium 138 mmol/L (137-145) 08/10/20 00:57 Potassium 3.6 mmol/L (3.6-5.0) 08/10/20 00:57 Chloride 101.0 mmol/L (98-107) 08/10/20 00:57 Carbon Dioxide 25 mmol/L (22-30) 08/10/20 00:57 Anion Gap 16 mmol/L 08/10/20 00:57 BUN 8 mg/dL (9-20) L 08/10/20 00:57 Creatinine 0.9 mg/dL (0.8-1.3) 08/10/20 00:57 Estimated GFR > 60 ml/min 08/10/20 00:57 BUN/Creatinine Ratio 9 % 08/10/20 00:57 Glucose 192 mg/dL (75-100) H 08/10/20 00:57 Calcium 8.8 mg/dL (8.4-10.2) 08/10/20 00:57 Total Bilirubin < 0.20 mg/dL (0.1-1.2) 08/10/20 00:57 Direct Bilirubin < 0.2 mg/dL (0-0.2) 08/10/20 00:57 Indirect Bilirubin 0.0 mg/dL 08/10/20 00:57 AST 17 units/L (5-40) 08/10/20 00:57 ALT 9 units/L (7-56) 08/10/20 00:57 Alkaline Phosphatase 85 units/L (35-129) 08/10/20 00:57 Total Protein 6.4 g/dL (6.3-8.2) 08/10/20 00:57 Albumin 4.2 g/dL (3.9-5) 08/10/20 00:57 Albumin/Globulin Ratio 1.9 % 08/10/20 00:57 - Imaging and Cardiology Imaging and Cardiology: CT abdomen/pelvis: FINDINGS: LOWER CHEST: No significant abnormality. LIVER: No significant abnormality. BILIARY SYSTEM: No significant abnormality. PANCREAS: No signific ant abnormality. SPLEEN: No significant abnormality. ADRENALS: No significant abnormality. KIDNEYS and URETERS: No significant abnormality. STOMACH / BOWEL: Small hiatal hernia. Colonic diverticulosis without CT evidence for acute diverticulitis. The appendix is normal. PERITONEUM: No free fluid. No free air. No fluid collection. LYMPH NODES: No significant adenopathy. VASCULAR STRUCTURES: No significant abnormality. URINARY BLADDER: No significant abnormality. REPRODUCTIVE ORGANS: No significant abnormality. ADDITIONAL FINDINGS: None. SKELETAL SYSTEM: No significant abnormality. IMPRESSION: 1. No acute process identified within the abdomen or pelvis to account for patient's symptoms. Assessment and Plan Assessment and plan: GI bleed -Complains of coffee ground emesis x1 day -CT abdomen pelvis negative -NPO -On IVF -On Protonix gtt -Hgb stable for now (14.3), continue to monitor -GI consulted (Dr. De La Torre)recs appreciated -Supportive care Leukocytosis -WBC on admission 18.3 -?? Inflammatory response -Afebrile -Cultures pending -Will hold off on starting abx for now -Continue to monitor CBC DM -POC BG monitoring -SSI coverage prn -HgbA1C pending HTN -Monitor BP -Resume home hypertensive meds when appropriate -Start clonidine patch -IV antihypertensive prn Bipolar disorder -Currently on 1013 with sitter for SI -Denies SI -Mental health eval pending -Resume meds when appropriate VTE prophylaxis?: Mechanical Reason for no VTE Prophylaxis: Bleeding Plan of care discussed with patient/family: Yes
[2020-08-10] MEDS: SODIUM CHLORIDE 0.9% 1000 ML 1,000 ML IV SCH (05:51)
[2020-08-10] MEDS ORDERED: cloNIDine TTS 0.2 MG/24 HR PATCH TD SCH (06:00)
[2020-08-10] MEDS: INSULIN LISPRO 100 UNIT/ML SUB-Q SCH (07:02)
--- NOTE | 2020-08-10 09:20 | Consultation ---
History of Present Illness - Reason for Consult Consult date: 08/10/20 Reason for consult: MHE Requesting physician: ROWENA BELTRAN - Chief Complaint Chief complaint: Nausea, coffee-ground emesis, - History of Present Psychiatric Illness Per ED Provider: Patient is a 40-year-old male who presents with EMS for nausea and vomiting x2 days. Patient states his nausea vomiting worsen. Patient states he started having coffee-ground emesis approximately 6 hours ago. Patient states his symptoms are worsening. Patient brought from a local psychiatric facility and the patient has a sitter with him because the patient is on suicide precautions. Patient is currently a 1013 at [facility] for suicidal ideations. PSYCH HPI Patient is a single, disabled -Kitt[place] male with past psychiatric history of bipolar and depression who currently resides with his mom admitted to this hospital as a medical transfer from [facility] where is currently receiving treatment for suicidal ideation. Patient transported here due to having nausea and vomiting, psych consult was placed due to patient current 1013 status. Patient seen in the room today patient says he is suicidal because he is going to a lot of issues the patient said he is not going to talk about them patient continues to sleep states that he does not want to be disturbed PAST PSYCHIATRIC HISTORY Diagnoses: Bipolar depression Suicide attempts or Self-harm behavior: Yes Prior psychiatric hospitalizations: Yes Substance Abuse history: Marijuana and meth Previous psychiatric medications tried: Yes Outpatient treatment: Yes PAST MEDICAL HISTORY: Diabetes hypertension Family Psychiatric History: None reported or documented SOCIAL HISTORY Marital Status: Single Living Arrangements: With mother Employment Status: [employer] Access to guns/weapons: None up Education: 10th grade History of Abuse: None report Legal History: Yes REVIEW OF SYSTEMS Constitutional: Negative for weight loss ENT: Negative for stridor Respiratory: Negative for cough or hemoptysis All other systems reviewed and are negative MENTAL STATUS EXAMINATION General Appearance and Behavior: Age appropriate, fair hygiene, wearing appropriate clothes, lying in bed, poor eye contact, cooperative irritable with questioning. Cooperation: Participating, Hostile and Guarded Psychomotor Behavior: unremarkable and within normal limits Mood: I don't know Affect and affective range: flat, preservative Thought Process: Illogical, Blocked, Thought Content: Hopelessness, Helplessness, Speech: Normal volume, Regular rate and rhythm, Intellectual Functioning: Average Suicidal Ideation: SI Homicidal Ideation: Denies HI Impulse Control: Impaired Insight and Judgment: Limited insight and judgment Memory: Short term memory intact Attention: Divided attention impaired Orientation: Alert, oriented, Assessment and Plan - Psychiatric problem (1) Bipolar depression Current Visit: Yes Status: Acute F31.9 Treatment Plan MEDICATIONS: Risks, benefits and alternatives of medications discussed with the patient, questions answered and consent obtained from patient. PSYCHOTHERAPY: Supportive psychotherapy provided MEDICAL: Per primary team DELIRIUM PRECAUTIONS: Please re-orient patient frequently, keep lights on during the day, and minimize benzodiazepines and opiates as these medications could worsen patient's confusion. MANAGEMENT INSTRUCTOR: DISPOSITION: Transfer back to [facility] once medically stable. Do Recommend acute inpatient psychiatric hospitalization at this time. Case discussed with Dr. Dennis who agrees with current disposition LEGAL STATUS: 1013 FOLLOW-UP: Will sign off Thank you for the consult. Please contact with any questions and/or concerns. Medications and Allergies Allergies Allergy/AdvReac Type Severity Reaction Status Date / Time No Known Allergies Allergy Verified 08/24/16 21:15 Home Medications Medication Instructions Recorded Confirmed Last Taken Type Ondansetron [Zofran Odt] 4 mg PO Q4H #14 tab.rapdis 07/03/13 Unknown Rx Docusate Sodium [Colace] 100 mg PO BID PRN #20 capsule 08/25/16 Unknown Rx polyethylene glycoL 3350 [Miralax 17 gm PO QDAY #10 packet 08/25/16 Unknown Rx 3350] Acetaminophen [Tylenol Arthritis] 650 mg PO Q6HR PRN #30 tablet.er 09/23/17 Unknown Rx Ondansetron [Zofran Odt] 4 mg PO Q8HR PRN #20 tab.rapdis 09/23/17 Unknown Rx Active Meds: Active Medications Acetaminophen (Acetaminophen 325 Mg Tab) 650 mg PO Q4H PRN PRN Reason: Pain MILD(1-3)/Fever >100.5/CORDON Clonidine HCl (Clonidine Tts 0.2 Mg/24 Hr Patch) 0.2 mg TD Th LACEY Last Admin: 08/10/20 07:04 Dose: 0.2 mg Documented by: Pantoprazole Sodium 80 mg/ (Sodium Chloride) 100 mls @ 10 mls/hr IV DIRECT LACEY Last Admin: 08/10/20 01:28 Dose: 8 mg/hr, 10 mls/hr Documented by: Sodium Chloride (Nacl 0.9% 1000 Ml) 1,000 mls @ 75 mls/hr IV DIRECT LACEY Last Admin: 08/10/20 05:51 Dose: 75 mls/hr Documented by: Insulin Human Lispro (Insulin Lispro 100 Unit/Ml) 0 unit SUB-Q Q6HR LACEY; Protocol Last Admin: 08/10/20 07:02 Dose: 3 unit Documented by: Metoclopramide HCl (Metoclopramide 10 Mg/2 Ml Inj) 10 mg IV Q6H PRN PRN Reason: Nausea And Vomiting Last Admin: 08/10/20 05:05 Dose: 10 mg Documented by: Morphine Sulfate (Morphine 2 Mg/1 Ml Inj) 2 mg IV Q4H PRN PRN Reason: Pain, Moderate (4-6) Ondansetron HCl (Ondansetron 4 Mg/2 Ml Inj) 4 mg IV Q8H PRN PRN Reason: Nausea And Vomiting Sodium Chloride (Sodium Chloride 0.9% 10 Ml Flush Syringe) 10 ml IV BID LACEY Sodium Chloride (Sodium Chloride 0.9% 10 Ml Flush Syringe) 10 ml IV PRN PRN PRN Reason: LINE FLUSH Mental Status Exam - Vital signs Last Vital Signs Temp Pulse 79 08/10/20 07:04 Resp 23 08/10/20 02:45 BP 148/104 08/10/20 08:31 Pulse Ox 100 08/10/20 08:31 Results Result Diagrams: 08/10/20 00:57 08/10/20 00:57 Abnormal lab results 08/10/20 08/10/20 Range/Units 00:57 00:57 WBC 18.3 H (4.5-11.0) K/mm3 RBC 5.92 H (3.65-5.03) M/mm3 Hct 46.0 H (35.5-45.6) % MCV 78 L (84-94) fl MCH 24 L (28-32) pg MCHC 31 L (32-34) % RDW 15.5 H (13.2-15.2) % [place] # (Auto) 1.1 H (0.0-0.8) K/mm3 Seg Neutrophils % 77.6 H (40.0-70.0) % Seg Neutrophils # 14.2 H (1.8-7.7) K/mm3 BUN 8 L (9-20) mg/dL Glucose 192 H (75-100) mg/dL All other labs normal. Assessment and Plan - Psychiatric problem (1) Bipolar depression Current Visit: Yes Status: Acute
--- NOTE | 2020-08-10 10:42 | Gastroenterology Consultation ---
History of Present Illness - Reason for Consult Consult date: 08/10/20 N/V, Substance Abuse Requesting physician: FLORY MANLEY - History of Present Illness The patient is a 40 yo male admitted from [facility] facility for suicidal ideation, complaining of abdominal pain, N/V. He has a recent hx of amphetimine binging. He states he has a hx of bowel obstruction/prior surgeries, but a CT scan shows no obstruction or inflammation. He has no witness emesis or melena/h ematochezia, and his labs are unremarkable, other than poor control of DM with an a1C >7%. He has stable vitals, and no fevers or chills this admit. He had also c/o coffee ground emesis, but a hct is WNL, and his BUN is low. Past History Past Medical History: diabetes, hypertension, other (Bipolar, bowel obstruction) Past Surgical History: Other (colectomy (2012)) Social history: smoking, alcohol abuse, full code, other (Current resident at [facility] (1013), drinks alcohol on occasions; amphetimine abuse). denies: prescription drug abuse, IV drug use Family history: no significant family history Medications and Allergies Allergies Allergy/AdvReac Type Severity Reaction Status Date / Time No Known Allergies Allergy Verified 08/24/16 21:15 Home Medications Medication Instructions Recorded Confirmed Last Taken Type Ondansetron [Zofran Odt] 4 mg PO Q4H #14 tab.rapdis 07/03/13 Unknown Rx Docusate Sodium [Colace] 100 mg PO BID PRN #20 capsule 08/25/16 Unknown Rx polyethylene glycoL 3350 [Miralax 17 gm PO QDAY #10 packet 08/25/16 Unknown Rx 3350] Acetaminophen [Tylenol Arthritis] 650 mg PO Q6HR PRN #30 tablet.er 09/23/17 Unknown Rx Ondansetron [Zofran Odt] 4 mg PO Q8HR PRN #20 tab.rapdis 09/23/17 Unknown Rx Active Meds: Active Medications Acetaminophen (Acetaminophen 325 Mg Tab) 650 mg PO Q4H PRN PRN Reason: Pain MILD(1-3)/Fever >100.5/CORDON Clonidine HCl (Clonidine Tts 0.2 Mg/24 Hr Patch) 0.2 mg TD [facility] Last Admin: 08/10/20 07:04 Dose: 0.2 mg Documented by: Pantoprazole Sodium 80 mg/ (Sodium Chloride) 100 mls @ 10 mls/hr IV DIRECT LACEY Last Admin: 08/10/20 01:28 Dose: 8 mg/hr, 10 mls/hr Documented by: Sodium Chloride (Nacl 0.9% 1000 Ml) 1,000 mls @ 75 mls/hr IV DIRECT LACEY Last Admin: 08/10/20 05:51 Dose: 75 mls/hr Documented by: Insulin Human Lispro (Insulin Lispro 100 Unit/Ml) 0 unit SUB-Q Q6HR LACEY; Protocol Last Admin: 08/10/20 07:02 Dose: 3 unit Documented by: Metoclopramide HCl (Metoclopramide 10 Mg/2 Ml Inj) 10 mg IV Q6H PRN PRN Reason: Nausea And Vomiting Last Admin: 08/10/20 05:05 Dose: 10 mg Documented by: Morphine Sulfate (Morphine 2 Mg/1 Ml Inj) 2 mg IV Q4H PRN PRN Reason: Pain, Moderate (4-6) Ondansetron HCl (Ondansetron 4 Mg/2 Ml Inj) 4 mg IV Q8H PRN PRN Reason: Nausea And Vomiting Sodium Chloride (Sodium Chloride 0.9% 10 Ml Flush Syringe) 10 ml IV BID LACEY Sodium Chloride (Sodium Chloride 0.9% 10 Ml Flush Syringe) 10 ml IV PRN PRN PRN Reason: LINE FLUSH I HAVE REVIEWED AND RECONCILED MEDICATIONS Review of Systems - Review of Systems All systems: negative (as noted in the HPI) Exam - Constitutional Vital Signs: Temp Pulse Resp BP Pulse Ox 79 23 148/104 100 08/10/20 07:04 08/10/20 02:45 08/10/20 08:31 08/10/20 08:31 General appearance: no acute distress - EENT Eyes: PERRL, EOM intact ENT: hearing intact, clear oral mucosa - Neck Neck: supple, normal ROM - Respiratory Respiratory effort: normal Respiratory: bilateral: CTA - Cardiovascular Rhythm: regular Heart Sounds: Present: S1 & S2 Extremities: no ischemia, No edema - Gastrointestinal General gastrointestinal: Present: soft, non-tender, non-distended - Integumentary Integumentary: Present: clear, warm, dry - Neurologic Neurological: alert and oriented x3 - Labs CBC & Chem 7: 08/10/20 00:57 08/10/20 00:57 Lab Results: Laboratory Results - last 24 hr 08/10/20 08/10/20 08/10/20 00:57 00:57 08:38 WBC 18.3 H RBC 5.92 H Hgb 14.3 Hct 46.0 H MCV 78 L MCH 24 L MCHC 31 L RDW 15.5 H Plt Count 293 Lymph % (Auto) 15.6 Luna % (Auto) 6.2 Eos % (Auto) 0.3 Baso % (Auto) 0.3 Lymph # (Auto) 2.9 Luna # (Auto) 1.1 H Eos # (Auto) 0.1 Baso # (Auto) 0.0 Seg Neutrophils % 77.6 H Seg Neutrophils # 14.2 H Sodium 138 Potassium 3.6 Chloride 101.0 Carbon Dioxide 25 Anion Gap 16 BUN 8 L Creatinine 0.9 Estimated GFR > 60 BUN/Creatinine Ratio 9 Glucose 192 H Hemoglobin A1c 9.1 H Calcium 8.8 Total Bilirubin < 0.20 Direct Bilirubin < 0.2 Indirect Bilirubin 0.0 AST 17 ALT 9 Alkaline Phosphatase 85 Total Protein 6.4 Albumin 4.2 Albumin/Globulin Ratio 1.9 Assessment and Plan - Patient Problems (1) Coffee ground emesis Current Visit: Yes Status: Acute Plan to address problem: - No labs or imaging findings to suggest bowel obstruction, mass lesion, ongoing PUD/GI bleeding. - Recommend protonix therapy, MVI therapy, and minimize or stop narcotics. - Advance to regular diet. - Can discharge back to psych facility per our service. - Will sign off; please call with questions.
[2020-08-10] MEDS ORDERED: PANTOPRAZOLE 40 MG INJ IV SCH (11:00)
--- NOTE | 2020-08-10 11:19 | Event Note ---
Date: 08/10/20 40-year-old male with a medical history of hypertension, diabetes admitted with nausea and vomiting of coffee-ground substance about 24 hours prior to presentation. Here in the ER, patient noted to have hemoconcentration. CT abdomen negative for any acute pathology. Patient admitted for further work-up. Started on Protonix drip. GI consulted for possible upper GI bleed. Plan Continue Protonix IV hydration Maintain n.p.o. for now On 1013. Psychiatry consulted Continue to monitor vitals A.m. labs ordered Hospitalist service will document a full progress note tomorrow
[2020-08-10] MEDS: ONDANSETRON 4 MG/2 ML INJ IV PRN (12:28)
[2020-08-11] MEDS: SODIUM CHLORIDE 0.9% 1000 ML 1,000 ML IV SCH (03:21)
[2020-08-11] MEDS: INSULIN LISPRO 100 UNIT/ML SUB-Q SCH ×3 (03:21→18:46)
[2020-08-11 06:06] LABS: Basophils # (Auto) 0.1 K/mm3 (0.0-0.1); Basophils % (Auto) 0.5 % (0.0-1.8); Eosinophils % (Auto) 0.3 % (0.0-4.3); Hematocrit 43.1 % (35.5-45.6); Hemoglobin 13.5 gm/dl (11.8-15.2); Lymphocytes # (Auto) 1.7 K/mm3 (1.2-5.4); Lymphocytes % (Auto) 17.5 % (13.4-35.0); Mean Corpuscular HGB Conc 31 % (32-34); Mean Corpuscular Volume 77 fl (84-94); Monocytes # (Auto) 0.7 K/mm3 (0.0-0.8); Monocytes % (Auto) 7.5 % (0.0-7.3); Platelet Count 274 K/mm3 (140-440); Red Blood Count 5.61 M/mm3 (3.65-5.03); Red Cell Distribution Width 14.9 % (13.2-15.2)
[2020-08-11 06:26] LABS: BUN/Creatinine Ratio 8; Blood Urea Nitrogen 6 mg/dL (9-20); Calcium 8.4 mg/dL (8.4-10.2); Hemolysis Index 67
--- NOTE | 2020-08-11 10:25 | Progress Note ---
Subjective - Reason for Consult Consult date: 08/11/20 Reason for consult: MHE Requesting physician: CATY LARIOS - Chief Complaint Chief complaint: Psych Progress Patient seen in room this AM reports not feeling suicidal today, though he is sad, and reports poor sleep. Patient informed I will start him on Trazodone once he is cleared to resume PO meds. REVIEW OF SYSTEMS Constitutional: Negative for weight loss ENT: Negative for stridor Respiratory: Negative for cough or hemoptysis All other systems reviewed and are negative MENTAL STATUS EXAMINATION General Appearance and Behavior: Age appropriate, good hygiene, wearing appropriate clothes, good eye contact, cooperative polite with questioning. Cooperation: Participating/engaged Psychomotor Behavior: unremarkable and within normal limits Mood: depressed Affect and affective range: congruent with mood Thought Process: Fluent/Logical, Thought Content: Within reality, Speech: Normal volume, Regular rate and rhythm, Intellectual Functioning: Average Suicidal Ideation: Denies SI Homicidal Ideation: Denies HI Impulse Control: Unimpaired Insight and Judgment: Normal insight and judgment, Memory: Normal, Attention: Normal, Orientation: Alert, oriented, Assessment and Plan - Psychiatric problem (1) Bipolar depression Current Visit: Yes Status: Acute F31.9 Treatment Plan Start trazodone PO QHS. MEDICATIONS: Risks, benefits and alternatives of medications discussed with the patient, questions answered and consent obtained from patient. PSYCHOTHERAPY: Supportive psychotherapy provided MEDICAL: Per primary team DELIRIUM PRECAUTIONS: Please re-orient patient frequently, keep lights on during the day, and minimize benzodiazepines and opiates as these medications could worsen patient's confusion. VP RESPIRATORY: DISPOSITION: Do not Recommend acute inpatient psychiatric hospitalization at this time. Case discussed with Dr. Dennis who agrees with current disposition LEGAL STATUS: 1013 rescinded FOLLOW-UP: Will sign off Thank you for the consult. Please contact with any questions and/or concerns. Mental Status Exam - Vital signs Last Vital Signs Temp 98.1 F 08/10/20 16:25 Pulse 77 08/10/20 16:25 Resp 20 08/10/20 16:25 BP 144/71 08/10/20 16:25 Pulse Ox 91 08/10/20 16:25 Assessment and Plan - Patient Problems (1) Bipolar depression Current Visit: Yes Status: Acute
[2020-08-11] MEDS: ONDANSETRON 4 MG/2 ML INJ IV PRN (10:46)
[2020-08-11] MEDS: MULTIVITAMINS ,THERAPEUTIC TAB PO SCH ×2 (10:47→12:34)
[2020-08-11] MEDS: PANTOPRAZOLE 40 MG TAB PO SCH ×2 (10:50→12:33)
--- NOTE | 2020-08-11 11:49 | Progress Note ---
Subjective Date of service: 08/11/20 Interval history: HPI: 40-year-old -[place] male who is currently on 1013 at [facility] for suicidal ideation with history of bipolar disorder, hypertension, diabetes, and bowel obstruction who complains of nausea and vomiting. Patient states he has been experiencing worsening nausea and vomiting x2-day and coffee-ground emesis x1 day. Additionally he complains of generalized abdominal cramping. Pain is constant and relieved with pain medication. Denies ingestion of foreign object, history of GERD/blood. 08/11 patient is awake and alert, not in any distress, GI and psych notes reviewed Patient was encouraged to eat but he is refusing saying he is afraid of vomiting Discussed with RN to encourage p.o. feeding Possible discharge tomorrow if he is able to tolerate p.o. feeds Assessment and plan GI bleed -Complains of coffee ground emesis x1 day -CT abdomen pelvis negative -GI note reviewed/patient cleared for discharge-no further GI work-up Possible discharge tomorrow if patient tolerates p.o. feeds Lab results reviewed and H&H is fair Leukocytosis-improved Likely reactive -Continue to monitor CBC DM -POC BG monitoring -SSI coverage -HgbA1C 9.1 HTN -Monitor BP -Resume home hypertensive meds when appropriate -Continue clonidine patch -IV antihypertensive prn Bipolar disorder Psychiatry note reviewed -Currently on 1013 with sitter for SI -Denies SI -Transfer to [place] - likely discharge tomorrow Objective - Constitutional General appearance: Present: no acute distress, well-nourished - EENT Eyes: PERRL, EOM intact - Neck Neck: supple, normal ROM - Respiratory Respiratory effort: normal Respiratory: bilateral: CTA - Cardiovascular Rhythm: regular Heart Sounds: Present: S1 & S2 Extremities: No edema - Gastrointestinal General gastrointestinal: Present: soft, non-tender Rectal Exam: deferred - Genitourinary Male genitourinary: deferred - Integumentary Integumentary: clear - Musculoskeletal Musculoskeletal: strength equal bilaterally - Neurologic Neurologic: no focal deficits - Psychiatric Psychiatric: appropriate mood/affect - Labs CBC & Chem 7: 08/11/20 05:13 08/11/20 05:13 Labs: Abnormal lab results 08/10/20 08/10/20 08/11/20 Range/Units 12:46 17:41 05:13 RBC 5.61 H (3.65-5.03) M/mm3 MCV 77 L (84-94) fl MCH 24 L (28-32) pg MCHC 31 L (32-34) % [place] % (Auto) 7.5 H (0.0-7.3) % Seg Neutrophils % 74.2 H (40.0-70.0) % Sodium (137-145) mmol/L BUN (9-20) mg/dL Glucose (75-100) mg/dL POC Glucose 183 H 153 H (70-105) mg/dL // Range/Units 05:13 RBC (3.65-5.03) M/mm3 MCV (84-94) fl MCH (28-32) pg MCHC (32-34) % [place] % (Auto) (0.0-7.3) % Seg Neutrophils % (40.0-70.0) % Sodium 136 L (137-145) mmol/L BUN 6 L (9-20) mg/dL Glucose 164 H (75-100) mg/dL POC Glucose (70-105) mg/dL
[2020-08-11] MEDS ORDERED: traZODone 50 MG TAB PO SCH (22:00)
[2020-08-12] MEDS: PANTOPRAZOLE 40 MG TAB PO SCH ×2 (08:19→11:47)
[2020-08-12] MEDS ORDERED: hydrALAZINE 20 MG/1 ML INJ IV PRN (10:58)
--- NOTE | 2020-08-12 11:26 | Discharge Summary ---
Providers - Providers Date of Admission: 08/10/20 04:27 Date of discharge: 08/12/20 Attending physician: LANG HALEY 08/10/20 04:27 Consult to Physician [CONS] Routine Comment: Dr. Daniels spoke with Dr. Girard @ 0450 Consulting Provider: BARBI GIRARD Physician Instructions: Reason For Exam: coffe ground emesis 08/10/20 04:41 Consult to Mental Health [CONS] Routine Reason For Exam: hx bipolar, on 1012 Primary care physician: CITIZEN PARTICIPATION SPECIALIST Hospitalization Condition: Critical Hospital course: HPI: 40-year-old -Spanish male who is currently on 101 at [facility] for suicidal ideation with history of bipolar disorder, hypertension, diabetes, and bowel obstruction who complains of nausea and vomiting. Patient states he has been experiencing worsening nausea and vomiting x2-day and coffee-ground emesis x1 day. Additionally he complains of generalized abdominal cramping. Pain is constant and relieved with pain medication. Denies ingestion of foreign object, history of GERD/blood. 08/11 patient is awake and alert, not in any distress, GI and psych notes reviewed Patient was encouraged to eat but he is refusing saying he is afraid of vomiting Discussed with RN to encourage p.o. feeding Possible discharge tomorrow if he is able to tolerate p.o. feeds 08/12 patient is refusing care. He is refusing to monitor his blood pressure. He is refusing to eat. He is moderately psychotic but not in any distress and answers appropriately. He is drinking liquids without any evidence of emesis. Patient medically stable and will be transferred back to [facility] Assessment and plan GI bleed -Complains of coffee ground emesis x1 day -CT abdomen pelvis negative -GI note reviewed/patient cleared for discharge-no further GI work-up Lab results reviewed and H&H is fair Leukocytosis-improved Likely reactive DM -POC BG monitoring -SSI coverage -HgbA1C 9.1 HTN -Patient is refusing monitoring of his blood pressure -Continue clonidine patch -Continue home medications however he is refusing to take them Bipolar disorder Psychiatry note reviewed -1012 has been rescinded by psychiatry [employer] -Denies SI -Discharge to [facility]- Disposition: [id number] PSY HOSP/PSY UNIT Final Discharge Diagnosis (Prints w/discharge instructions): Nausea and vomiting Time spent for discharge: 34 min Core Measure Documentation - Palliative Care Palliative Care/ Comfort Measures: Not Applicable - Core Measures Any of the following diagnoses?: none Exam - Constitutional Vitals: Temp Pulse Resp BP Pulse Ox 98.3 F 63 16 182/114 100 08/11/20 08:29 08/11/20 20:27 08/11/20 12:23 08/11/20 12:23 08/11/20 20:27 General appearance: Present: no acute distress, well-nourished - EENT Eyes: Present: PERRL, EOM intact ENT: hearing intact - Neck Neck: Present: supple, normal ROM - Respiratory Respiratory effort: normal Respiratory: bilateral: CTA - Cardiovascular Rhythm: regular Heart Sounds: Present: S1 & S2 - Extremities Extremities: No edema - Abdominal General gastrointestinal: Present: soft, non-tender - Rectal Rectal Exam: deferred - Integumentary Integumentary: Present: clear - Psychiatric Psychiatric: other (Uncooperative with care and medications and refusing to eat) - Neurologic Neurologic: no focal deficits, moves all extremities Plan Activity: advance as tolerated Weight Bearing Status: Full Weight Bearing Diet: regular, low fat, low cholesterol, low salt, diabetic Additional Instructions: Discharged to [facility] Forms: Accompanied Note
[2020-08-12] MEDS: MULTIVITAMINS ,THERAPEUTIC TAB PO SCH (11:46)
[2020-08-12 11:57] VITALS: BP 128/90
[2020-08-12] MEDS: INSULIN LISPRO 100 UNIT/ML SUB-Q SCH (12:14)
== END 2020-08-12 18:27 | disposition home or self-care (01) ==
LOC: ED 00:18 → 4A 04:27
PROVIDERS: ADMIT Internal Medicine Geriatric Medicine; ATTEND Internal Medicine
DX: K92.2 Gastrointestinal hemorrhage, unspecified (principal); D72.829 Elevated white blood cell count, unspecified; K56.609 Unspecified intestinal obstruction, unspecified as to partial versus complete obstruction; I10 Essential (primary) hypertension; E11.9 Type 2 diabetes mellitus without complications; F31.9 Bipolar disorder, unspecified; F17.210 Nicotine dependence, cigarettes, uncomplicated; Z98.890 Other specified postprocedural states; Z79.4 Long term (current) use of insulin
CPT/HCPCS: 36415; 74177; 80048; 80076; 82962; 83036; 85025; 87040; 96361; 96365; 96366; 96375; 96376; 99291; 99406; C9113; G0378; J2405; J2765; J7030; Q9967; J1815